=== PATIENT | female | born 1955 | race Caucasian/White ===

== ENCOUNTER 2016-12-21 18:18 | Emergency (ER) | payer OTHER ==
[2016-12-21 18:32] VITALS: BP 131/69
== END 2016-12-21 19:46 | disposition left against medical advice (07) ==
LOC: ED 18:18
DX: R10.9 Unspecified abdominal pain (principal); Z53.21 Procedure and treatment not carried out due to patient leaving prior to being seen by health care provider
CPT/HCPCS: 99282